=== PATIENT | male | born 1965 | race Native Hawaiian/Other Pacific Islander ===

== ENCOUNTER 2020-03-30 11:26 | Emergency (ER) | payer OTHER ==
[~2020-03-30] VITALS: Ht 175.3 cm; Wt 88.5 kg
[2020-03-30 14:35] VITALS: BP 121/74; TEMP 98.1
== END 2020-03-30 14:35 | disposition home or self-care (01) ==
LOC: ED 11:58
PROC: 0HQDXZZ Repair Right Lower Arm Skin, External Approach (ICD-10-PCS; principal; 2020-03-30)
DX: S51.811A Laceration without foreign body of right forearm, initial encounter (principal); W26.8XXA Contact with other sharp object(s), not elsewhere classified, initial encounter; Y92.89 Other specified places as the place of occurrence of the external cause
CPT/HCPCS: 90471; 90715; 96372; 99283; J7040